=== PATIENT | male | born 1950 | race Caucasian/White ===

== ENCOUNTER 2017-09-10 05:31 | Day surgery (SDC) | payer OTHER ==
[~2017-09-10] VITALS: Ht 185.4 cm; Wt 86.1 kg
[~2017-09-10 05:31] MED LIST: ASCORBIC ACID100 MG PO; DAILY VALUE1 EACH PO; LIPITOR40 MG PO; MAGNESIUM100 MG PO; PENNSAID2 GM TP; VITAMIN D2000 UNI1 PO
[2017-09-10 05:53] VITALS: BP 140/87
[2017-09-10 09:30] VITALS: BP 140/84
[2017-09-10 09:52] VITALS: BP 154/88
== END 2017-09-10 10:20 | disposition home or self-care (01) ==
LOC: SDC 05:31
PROC: 0PB60ZZ Excision of Left Scapula, Open Approach (ICD-10-PCS; principal; 2017-09-10)
DX: D17.1 Benign lipomatous neoplasm of skin and subcutaneous tissue of trunk (principal); J44.9 Chronic obstructive pulmonary disease, unspecified; I10 Essential (primary) hypertension; E78.00 Pure hypercholesterolemia, unspecified; G89.29 Other chronic pain; M70.12 Bursitis, left hand; Z87.891 Personal history of nicotine dependence
CPT/HCPCS: 88304; J0131; J0330; J0690; J2250; J3010; S0020